=== PATIENT | male | born 1990 | race Hispanic/Latino ===

== ENCOUNTER 2017-11-07 15:01 | Outpatient (CLI) | payer BC | END 2017-11-07 15:02 | disposition home or self-care (01) | LOC: BICRAD 15:01 | PROVIDERS: ATTEND Family Medicine | DX: S63.054A Dislocation of other carpometacarpal joint of right hand, initial encounter (principal) ==

== ENCOUNTER 2017-11-07 19:00 | Day surgery (SDC) | payer BC ==
[~2017-11-07 19:00] MED LIST: Ketorolac Tromethamine 30 MG/ML VIAL ONE; Lidocaine 1% PF 5 ML VIAL ONE; PHENYLEPHRINE-NS 100 MCG/ML 10 ML SYRINGE ONE; PROPOFOL 200 MG/20 ML VIAL ONE
[2017-11-07] MEDS ORDERED: Bupivacaine PF 0.5% 30 ML VIAL ONE (21:39)
[2017-11-07] MEDS ORDERED: Bacitracin Zinc Ointment 30 gm TUBE ONE (21:39)
[2017-11-07] MEDS ORDERED: Sodium Chloride 0.9% 10 ML ONE (21:39)
[2017-11-07] MEDS ORDERED: CEFAZOLIN/Water 2 GM/20 ML SYRINGE ONE (21:46)
[2017-11-07] MEDS ORDERED: Midazolam HCl 2 mg/2 ml Vial ONE (22:19)
[2017-11-07] MEDS ORDERED: Fentanyl 100 MCG/2 ML VIAL ONE (22:19)
[2017-11-08] MEDS ORDERED: Meperidine HCl/PF 25 MG/ML VIAL ONE (00:17)
[2017-11-08] MEDS ORDERED: Ketorolac Tromethamine 30 MG/ML VIAL ONE (00:21)
[2017-11-08] MEDS ORDERED: Fentanyl 100 MCG/2 ML VIAL ONE (00:34)
--- NOTE | 2017-11-08 07:24 | OP ---
DATE OF PROCEDURE: 11/07/2017, ending on 11/08/2017 at 0015 hours. TOURNIQUET TIME: 38 minutes. ESTIMATED BLOOD LOSS: 10 mL. C-arm used, yes. INJECTED: Yes, 20 mL of 0.5% Marcaine, 10 before incision and 10 after. PREOPERATIVE DIAGNOSES: 1. Right ring finger metacarpal base fracture. 2. Right small finger carpometacarpal dislocation. 3. Right ring finger carpometacarpal dislocation. 4. Dorsal hamate avulsion fracture occupying approximately 15-20% arterial surface with subchondral comminution. POSTOPERATIVE DIAGNOSES: 1. Right ring finger metacarpal base fracture. 2. Right small finger carpometacarpal dislocation. 3. Right ring finger carpometacarpal dislocation. 4. Dorsal hamate avulsion fracture occupying approximately 15-20% arterial surface with subchondral comminution. PROCEDURE PERFORMED: 1. Open reduction internal fixation of hamate fracture. 2. Open reduction internal fixation small finger carpometacarpal dislocation. 3. Open reduction and internal fixation right ring finger metacarpal fracture and 4 open reduction a nd internal fixation right ring finger carpometacarpal joint dislocation. 4. C-arm supervision. SURGEON: Dr. David Ferrara INDICATION: Fracture dislocation 3 days old with comminution dorsally making closed reduction very u nlikely to be sustained. DESCRIPTION OF PROCEDURE: After successful general endotracheal the limb was prepped and draped. Ti meout was done appropriately. The C-arm was brought into the field, attempted closed reduction, it w ould not be maintained probably because of fracture. We then made a zigzag incision between the ring and small finger metacarpal midshaft at the base, crossing over the tips of the hamate to the mid wa ist of the hamate, sparing the superficial ulnar nerve branches. We then entered the capsule and saw that the ligament was torn between the metacarpal bases, small finger and ring finger. Preserved th is ligament for later closure and repair. We then saw there was a dorsal hamate fracture with approximately 8 mm of articular surface were subc hondral ____, we repieced this together, held it with wires and then was able to perform a stable red uction in an open manner. We then pinned first the metacarpal fracture of the ring finger, then the metacarpal of the ring finger to the carpal bone hamate, and then small finger to the hamate. This g ave excellent reduction radiographically and clinically, the fracture was stable with wire fixation, and then we released the tourniquet. We closed the joint capsule and the intermetacarpal ligament wi th a 2-0 Vicryl undyed, released the tourniquet and closed subcutaneous tissue interrupted with a run geovani Monocryl 4-0 and then 4-0 nylon interrupted mattress pattern repairing the epidermis. A bulky d ressing was applied along with a splint and the patient left the operating room without evidence of a nesthetic or operative complication.
--- NOTE | 2017-11-08 07:49 | RAD ---
4 INTRAOPERATIVE RADIOGRAPHS RIGHT HAND: Date: 11/08/17 HISTORY: Right hand pinning. FINDINGS: Four intraoperative images obtained and demonstrate placement of pins across the base of the 4th and 5th metacarpals, as well as involving the hamate and triquetrum. IMPRESSION: Status post pinning of medial carpometacarpal bones. POS: [facility]
== END 2017-11-08 01:10 | disposition home or self-care (01) ==
LOC: SDC 19:00
PROVIDERS: ATTEND Orthopaedic Surgery Hand Surgery
PROC: 0PSM04Z Reposition Right Carpal with Internal Fixation Device, Open Approach (ICD-10-PCS; principal; 2017-11-07)
PROC: 0PSP04Z Reposition Right Metacarpal with Internal Fixation Device, Open Approach (ICD-10-PCS; principal; 2017-11-07)
DX: S62.314A Displaced fracture of base of fourth metacarpal bone, right hand, initial encounter for closed fracture (principal); S63.054A Dislocation of other carpometacarpal joint of right hand, initial encounter; S62.141A Displaced fracture of body of hamate [unciform] bone, right wrist, initial encounter for closed fracture; W22.8XXA Striking against or struck by other objects, initial encounter
CPT/HCPCS: 76001; 96372; 96374; A4216; J1885; J2001; J2175; J2250; J2704; J3010; J3490; S0020